=== PATIENT | male | born 1975 | race Caucasian/White ===

== ENCOUNTER 2020-05-16 09:11 | Emergency (ER) | payer OTHER, SELFPAY ==
[2020-05-16 09:19] VITALS: BP 164/122; PULSE 99; RESP 18; TEMP 36.6; O2SAT 97; BMI 44.4
--- NOTE | 2020-05-16 09:51 | XRR_ITS ---
PROCEDURE INFORMATION: Exam: XR Chest, 1 View Exam date and time: 05/16/2020 10:03 AM Age: 44 years old Clinical indication: Chest pain; Type not specified; Additional info: Cp and dizzy TECHNIQUE: Imaging protocol: XR of the chest Views: 1 view. COMPARISON: No relevant prior studies available. FINDINGS: Lungs: Hyperinflation. Mild interstitial prominence without acute airspace disease. Pleural space: No pleural effusion. Heart/Mediastinum: Borderline cardiomegaly. Bones/joints: Unremarkable. XR/XR chest 1V portable [id number] IMPRESSION: Mild interstitial prominence without acute airspace disease.
--- NOTE | 2020-05-16 09:51 | ECG_ITS ---
[facility] Test Date: 2020-05-16 Pat Name: Ryland Guidry Department: Room: Gender: Male Student Support Advisor: ts : 1975 Requested By: Guanaco Montemayor Order Number: [id number] Morales MD: Edelmira Vidal M.D. Measurements Intervals Twain Rate: 104 P: 47 VA: 141 QRS: -21 QRSD: 85 T: 57 QT: 332 QTc: 438 Interpretive Statements SINUS TACHYCARDIA BORDERLINE LEFT AXIS DEVIATION [QRS AXIS < -20] MINIMAL VOLTAGE CRITERIA FOR LVH, CONSIDER NORMAL VARIANT [MEETS CRITERIA IN ONE OF: R(aVL), S(V1), R(V5), R(V5/V6)+S(V1)] ABNORMAL RHYTHM ECG No previous ECG available for comparison Electronically Signed On 05-16-2020 20:29:01 ESTIMATOR LUMBER by Edelmira Vidal M.D. [id number]
--- NOTE | 2020-05-16 09:58 | ED_ITS ---
HPI - SOB/Dyspnea General: Chief Complaint: Shortness of Breath/Dyspnea Stated Complaint: Tightness in Chest/Dizzy Time Seen by Provider: 05/16/20 09:50 History of Present Illness: HPI Narrative: Patient is a 44-year-old male comes to the ED with dizziness, shortness of breath and some chest tightness. Patient says the dizziness and chest tightness started while exerting himself at his job. After he exerted himself and was sitting and resting he said he has had some episodes of lightheadedness/dizziness. He says the lightheaded/dizziness is not described as room spinning but more of wobbly feeling. Here in the ED patient has no chest pain currently. He did state that he has been on a diet for the past couple days due to recent weight gain, so he is not eating and drinking as much as normally. Associated symptoms: Reports chest pain, dizziness (light headed) and lightheadedness; Deny abdominal pain, fever(s), nausea, orthopnea, palpitations or vomiting Review of Systems Const: Denies: fever(s), chills or fatigue Eyes: Denies: change in vision or eye discomfort ENMT: Denies: throat pain, odynophagia, nasal discharge or nasal congestion Card: Reports: chest pain and lightheadedness; Denies: palpitations, edema, swelling of feet/ankles, dyspnea on exertion or orthopnea Resp: Reports: dyspnea; Denies: productive cough or non-productive cough GI: Denies: abdominal pain, nausea, vomiting, diarrhea, constipation or hematochezia : Denies: flank pain, difficulty urinating, dysuria or hematuria Musc: Denies: neck pain, back pain or extremity swelling Skin/Breast: Denies: rash or new lesions Neuro: Reports: dizziness (light headed); Denies: headache(s), numbness in extremities or weakness in extremities Physical Exam Const: COMMON NORMALS: no acute distress, patient oriented x3 and alert GENERAL APPEARANCE: cooperative and comfortable NUTRITIONAL APPEARANCE: overweight HENMT: COMMON NORMALS: normocephalic HEAD & SCALP: normocephalic MOUTH: Normal oral and palatal mucosa present THROAT: posterior oropharynx normal and uvula midline Eye: COMMON NORMALS: Equal, round and reactive pupils present PUPIL: Yes Equal, round and reactive pupils present Neck/C-Spine: COMMON NORMALS: supple GENERAL: Yes normal visual inspection Resp: COMMON NORMALS: normal respiratory effort, No retractions, No use of accessory muscles and clear to auscultation bilaterally AUSCULTATION: clear to auscultation bilaterally Cardio: COMMON NORMALS: regular rate, regular rhythm, S1 normal heart sound present, S2 normal heart sound present, No gallops present (Cardio), No clicks present (Cardio), No murmurs present (Cardio) and Peripheral pulses 2+ throughout RATE: regular rate RHYTHM: regular rhythm HEART SOUNDS: S1 normal heart sound present and S2 normal heart sound present PERIPHERAL PULSES: Peripheral pulses 2+ throughout GI: COMMON NORMALS: Normal to inspection, nondistended, normoactive bowel sounds present, Soft to palpation, non-tender and no masses PALPATION: Yes Soft to palpation : COMMON NORMALS: Yes no CVA tenderness BLADDER/KIDNEY EXAM: Yes no CVA tenderness Back/Pelvis: COMMON NORMALS: no CVA tenderness Extremity: COMMON NORMALS: normal to inspection and no pedal edema Neuro: COMMON NORMALS: patient oriented x3 and moves all extremities SENSORIUM/ORIENTATION: Yes alert Skin: GENERAL SKIN EXAM: dry skin Course ED course: Patient has a heart score of 3. Vital Signs: Vital signs: Vital Signs Temperature 97.8 F 05/16/20 09:19 Pulse Rate 85 05/16/20 12:05 Respiratory Rate 16 05/16/20 12:05 Blood Pressure 153/103 05/16/20 12:05 Pulse Oximetry 99 05/16/20 12:05 MDM - SOB/Dyspnea MDM Narrative: Medical decision making narrative: Patient is a 44-year-old male comes to the ED with onset of shortness of breath, chest pain and lightheadedness while exerting himself at work. At rest his symptoms improved. Patient stated that he has been on a pretty strict diet lately with minimal food intake, which could have caused some of his symptoms symptoms. Here in the ED he has no symptoms and says he feels completely normal. Physical exam shows a overweight 44-year-old male in no acute distress or pain. All other exam findings were normal and unremarkable. CBC and CMP are unremarkable. Troponin negative and EKG showed sinus tachycardia 104 bpm and there is no ST segment elevation or depression seen. Chest x-ray acute airspace disease. Patient's heart score was 3. Due to patient's onset of symptoms, while he was active I put in a referral with case management for patient to get cardiac stress test. Order was placed with case management and she will be following up to get that appointment set up. I told patient that case management will be calling him in the next several days to set up an appointment for his stress test. Follow-up with PCP in 7 to 10 days. Return to ED precautions given. Patient understood and agreed with plan. Lab Data: Attestation: I reviewed the patient's lab results. Labs: Lab Results 05/16/20 05/16/20 05/16/20 Range/Units 09:57 09:57 09:57 WBC 10.1 H (4.0-10.0) 10^3/ uL RBC 4.42 (4.1-5.3) 10^6/u L Hgb 13.9 (11.7-16.6) g/dL Hct 43.0 (42.0-52.0) % MCV 97.3 H (80-94) fL MCH 31.4 (28.0-34.0) pg MCHC 32.3 (30.0-36.0) g/dL RDW 12.4 (12.1-15.1) % Plt Count 219 (130-400) 10^3/c mm MPV 11.0 H (7.4-10.4) fL Neut % (Auto) 75.5 % Lymph % (Auto) 17.8 % Grady % (Auto) 5.5 % Eos % (Auto) 0.4 % Baso % (Auto) 0.4 % Neut # (Auto) 7.59 (1.8-7.7) 10^3/u L Lymph # (Auto) 1.8 (0.8-4.8) 10^3/u L Grady # (Auto) 0.6 (0.2-0.9) 10^3/u L Eos # (Auto) 0.0 (0.0-0.8) 10^3/u L Baso # (Auto) 0.0 (0.0-0.1) 10^3/u L Nucleated RBC % (a uto) 0 % Nucleated RBCs # 0.0 /100WBC Sodium 137 (136-145) mmol/L Potassium 4.6 (3.5-5.1) mmol/L Chloride 100 (98-107) mmol/L Carbon Dioxide 27 (22-29) mmol/L Anion Gap 14.6 (5-19) BUN 12 (6-20) mg/dL Creatinine 0.7 (0.7-1.2) mg/dL GFR Calculation 121.4 (90-130) mL/min Glucose 100 (65-115) mg/dL Calculated Osmolal ity 284 L (285-295) mOsm/k g Calcium 9.2 (8.5-10.5) mg/dL Total Bilirubin 0.3 (0.15-1.2) mg/dL AST 40 (0-40) U/L ALT 127 H (0-41) U/L Alkaline Phosphata se 66 (40-130) IU/L Troponin T Baselin e 6 (0-15) ng/L Total Protein 6.9 (6.6-8.7) g/dL Albumin 4.1 (3.5-5.2) g/dL Globulin 2.8 (1.3-4.6) g/dL Imaging Data^: CXR: Attestation: I personally reviewed and interpreted this imaging study as follows: Radiologist's impression: [address] [address] XRay Report Signed Patient: Ryland Guidry Unit #: [id number] : 1975 Age/Sex: 44 / M ADM Date: 05/16/20 Loc: ER Room/Bed: Attending Dr: Ordering Provider/Ordering MD: Guanaco Montemayor Date of Service: 05/16/20 Procedure(s): XR chest 1V portable [id number] Accession Number(s): [id number] Report Number: [id number] PROCEDURE INFORMATION: Exam: XR Chest, 1 View Exam date and time: 05/16/2020 10:03 AM Age: 44 years old Clinical indication: Chest pain; Type not specified; Additional info: Cp and dizzy TECHNIQUE: Imaging protocol: XR of the chest Views: 1 view. COMPARISON: No relevant prior studies available. FINDINGS: Lungs: Hyperinflation. Mild interstitial prominence without acute airspace disease. Pleural space: No pleural effusion. Heart/Mediastinum: Borderline cardiomegaly. Bones/joints: Unremarkable. XR/XR chest 1V portable [id number] IMPRESSION: Mild interstitial prominence without acute airspace disease. Dictated By: Nic Arriaga MD Signed By: Nic Arriaga MD Signed Date/Time: 05/16/20 1038 DD/ 1037 EKG Data^: EKG 1: Attestation: I personally reviewed and interpreted this EKG as follows: EKG Interpretation Date: 05/16/20 Interpretation: Sinus tachycardia, 104 bpm, no ST segment elevation or depression seen. No other acute findings on EKG. Discharge Plan Discharge Patient Disposition: Home Clinical Impression: Chest pain, non-cardiac, Episodic lightheadedness, Exertional chest pain Condition: Stable Prescriptions: No Action No Known Home Medications RF: 0 Discharge Orders: Discharge ED (Routine); Ordered 05/16/20 Ordered By: Guanaco Montemayor Discharge Diet: Regular Discharge Activity: Increase activity as tolerated Patient Instructions: Chest Pain (ED), Noncardiac Chest Pain (ED) Activity Restrictions/Additional Instructions: Follow-up with medical provider as directed. Case management will be contacting you in the next several days to set up the appointment for your cardiac stress test. Return to the ER or your medical provider if condition worsens. Please read and understand discharge instructions. If any questions, please ask. Coding Level of Care Code ED Stretcher Leveler Operator Helper for Chg Fwd Exam Comprehensive
[2020-05-16 10:20] LABS: Basophils % 0.4 %; Eosinophils % 0.4 %; Hemoglobin 13.9 g/dL (11.7-16.6); Lymphocytes # 1.8 10^3/uL (0.8-4.8); Lymphocytes % 17.8 %; Mean Corpuscular HGB Conc 32.3 g/dL (30.0-36.0); Mean Corpuscular Hemoglobin 31.4 pg (28.0-34.0); Mean Corpuscular Volume 97.3 fL (80-94); Monocytes # 0.6 10^3/uL (0.2-0.9); Monocytes % 5.5 %; Neutrophils # 7.59 10^3/uL (1.8-7.7); Neutrophils % 75.5 %; Nucleated Red Blood Cells % 0 %; Platelet Count 219 10^3/cmm (130-400); Red Blood Count 4.42 10^6/uL (4.1-5.3); Red Cell Distribution Width 12.4 % (12.1-15.1); White Blood Count 10.1 10^3/uL (4.0-10.0)
[2020-05-16 10:33] VITALS: BP 167/121; PULSE 93; RESP 16
[2020-05-16 10:46] LABS: Alanine Aminotransferase 127 U/L (0-41); Albumin Level 4.1 g/dL (3.5-5.2); Alkaline Phosphatase 66 IU/L (40-130); Anion Gap 14.6 (5-19); Aspartate Amino Transferase 40 U/L (0-40); Blood Urea Nitrogen 12 mg/dL (6-20); Calcium 9.2 mg/dL (8.5-10.5); Carbon Dioxide 27 mmol/L (22-29); Chloride 100 mmol/L (98-107); Globulin 2.8 g/dL (1.3-4.6); Glomerular Filtration Rate 121.4 mL/min (90-130); Glucose 100 mg/dL (65-115); Osmolality Calculated 284 mOsm/kg (285-295); Potassium 4.6 mmol/L (3.5-5.1); Sodium 137 mmol/L (136-145); Total Bilirubin 0.3 mg/dL (0.15-1.2); Total Protein 6.9 g/dL (6.6-8.7)
[2020-05-16 10:47] LABS: Troponin(5th) Baseline 6 ng/L (0-15)
[2020-05-16 11:00] VITALS: BP 145/109; PULSE 81; RESP 16; O2SAT 99
[2020-05-16 11:30] VITALS: BP 153/103; PULSE 88; RESP 16; O2SAT 98
[2020-05-16 12:05] VITALS: BP 153/103; PULSE 85; RESP 16; O2SAT 99
--- NOTE | 2020-05-19 09:47 | DCPLANNER ---
manager intermediate had message to schedule an out patient stress test for patient. manager intermediate spoke with patient, he stated that he is going to follow up with his primary care, where he lives.
== END 2020-05-16 12:15 | disposition home or self-care (01) ==
PROVIDERS: Emergency Provider Physician Assistant
DX: R42 Dizziness and giddiness (principal); R07.89 Other chest pain
CPT/HCPCS: 12345; 71045; 80053; 84484; 85025; 93005; 99282; 99283